=== PATIENT | female | born 1965 | race Caucasian/White ===

== ENCOUNTER 2017-06-06 07:14 | Emergency (ER) | payer MEDICAID ==
[~2017-06-06] VITALS: Ht 175.3 cm; Wt 59.9 kg
[2017-06-06 07:17] VITALS: BP 99/68
[2017-06-06] MEDS ORDERED: ACETAMINOPHEN ES 500 MG TABLET ONE (08:09)
[2017-06-06] MEDS ORDERED: ACETAMINOPHEN ES 500 MG TABLET PO ONE (08:30)
== END 2017-06-06 09:32 | disposition home or self-care (01) ==
LOC: ER 07:17
DX: S93.401A Sprain of unspecified ligament of right ankle, initial encounter (principal); K50.90 Crohn's disease, unspecified, without complications; Z88.0 Allergy status to penicillin; W18.39XA Other fall on same level, initial encounter; Y93.89 Activity, other specified; Y92.89 Other specified places as the place of occurrence of the external cause; Y99.8 Other external cause status
CPT/HCPCS: 73590; 73610; 99284; A4606; Z7610